=== PATIENT | male | born 1990 | race Caucasian/White ===

== ENCOUNTER 2016-05-01 17:49 | Emergency (ER) | payer MEDICAID ==
[2016-05-01 19:03] VITALS: BP 122/59; PULSE 84; TEMP 98.4
[2016-05-01 19:04] VITALS: BMI 19.9
--- NOTE | 2016-05-01 19:28 | EDPRACDOC ---
- General Information Stated Complaint: WOUND CHECK ? ABSCESS UPPER LIP Time Seen by Provider: 05/01/16 19:12 Home Medications: Home Medications Calcitriol [Rocaltrol] 0.5 mcg PO DAILY 01/10/16 Clindamycin [Cleocin] 150 mg PO QID #40 cap 05/01/16 Allergies/Adverse Reactions: Allergies Allergy/AdvReac Type Severity Reaction Status Date / Time No Known Allergies Allergy Verified 05/01/16 19:23 - History of Present Illness Onset: 2 WEEKS HPI: PT PRESENTS TODAY WITH PAINFUL MASS TO RIGHT UPPER LIP X 2 WEEKS. NO FEVER, WALLIS , DIZZINESS. 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 LAST CREATININE 5.8. Location: Reports: Face Relevent History Of: Reports: None Prior Abscess: Reports: None Pain: Reports: Moderate Quality: Reports: Draining, Painful, Red Associated Signs & Symptoms: Reports: None ED Past Medical History - History Reviewed Yes Nurses notes reviewed and agree except as marked - Patient Medical History GI/ History: Reports: Renal Failure Psychological History: Denies: Depression - Family Medical History Reports: Hypertension (MOM & DAD), Diabetes (MATERNAL GMOTHER), Cancer ( MATERNAL GMOTHER), Stroke (MATERNAL GFATHER), Cardiac Disorders (PATERNAL GMOTHER) - Social Medical History Smoking Status: Light tobacco smoker (less than 5/day) EDM Review of Systems - Review of Systems ROS Negative Except as Marked: Yes All systems reviewed and were negative except as marked Constitutional: No Symptoms Reported Eyes: No Symptoms Reported Ears: No Symptoms Reported Throat: No Symptoms Reported Nose: No Symptoms Reported Respiratory: No Symptoms Reported Cardiovascular: No Symptoms Reported Gastrointestinal: No Symptoms Reported Neurological: No Symptoms Reported Musculoskeletal: No Symptoms Reported Integumentary: Wound - Physical Exam Constitutional: Alert (Awake), No apparent distress Oriented to: Time, Person, Place Last recorded Vital Signs: Last Vital Signs Temp 98.4 F 05/01/16 19:03 Pulse 84 05/01/16 19:03 Resp 18 05/01/16 19:03 BP 122/59 L 05/01/16 19:03 Pulse Ox 98 05/01/16 19:03 Oxygen Pulse Oxygen Saturation 98 O2 Device Oxygen Flow Rate Fraction of Inspired Oxygen ( FIO2) - HEENT Head: Normal Eye Exam: Normal Oropharynx: Other (NOTED DRAINING ABSCESS TO RIGHT UPPER LIP WITH LOCAL CELLULITIS; NO LYMPHADENOPATHY) Tympanic Membrane: Normal ENT EAC: Normal Nose: No Symptoms Reported Neck: Normal, Denies Pain, Midline - Respiratory/Cardiovascular Respiratory: Normal - CTA Cardiovascular: Normal - GI Palpation: Normal Tenderness: Non tender - Musculoskeletal Back: Normal Extremities: Normal - Integumentary Skin: Normal Lymphatics: Normal - Neurologic Cerebellar: Normal Mood Description: Normal Thought: Coherent Perception: Normal - Additional Information Additional Information: CALLED PHARMACY WHO ADVISED RENALLY DOSED CLINDAMYCIN. Decision Time to Discharge: 19:26 - Departure Disposition: Home Condition: Good Final Diagnosis: Abscess Instructions: MRSA (Methicillin Resistant Staphylococcus Aureus) (ED) Education/Counseling Given To: Patient, Family Member Education/Counseling Given Regarding: Diagnosis, Treatment, Follow Up Referrals: Marline Cortez MD [Primary Care Provider] - One Week Prescriptions: Clindamycin [Cleocin] 150 mg PO QID #40 cap Additional Instructions: WARM COMPRESSES TO HELP FACILITATE DRAINAGE. TRY NOT TO PICK AT AREA.
== END 2016-05-01 19:32 | disposition home or self-care (01) ==
LOC: EDMC 17:49
DX: K13.0 Diseases of lips (principal)
CPT/HCPCS: 99282